=== PATIENT | female | born 1960 | race Caucasian/White ===

== ENCOUNTER → 2020-07-22 | Outpatient (CLI) | payer BC, OTHER ==
[2020-07-22 13:25] LABS: HEMOGLOBIN 14.1 gm/dl (12.3-15.3); RED BLOOD COUNT 4.83 M/UL (4.00-5.10); WHITE BLOOD COUNT 19.1 K/UL (4.5-11.0)
[2020-07-22 13:52] LABS: BUN/CREATININE RATIO 26 (0-10)
== END ==
LOC: LAB 12:01
DX: R41.9 Unspecified symptoms and signs involving cognitive functions and awareness (principal); T78.40XA Allergy, unspecified, initial encounter; E55.9 Vitamin D deficiency, unspecified; R53.83 Other fatigue
CPT/HCPCS: 36415; 80053; 80061; 82607; 83036; 84443; 85027

== ENCOUNTER → 2021-02-15 | Outpatient (CLI) | payer BC ==
[2021-02-15 12:53] LABS: HEMOGLOBIN 14.6 gm/dl (12.3-15.3); RED BLOOD COUNT 4.89 M/UL (4.00-5.10); WHITE BLOOD COUNT 8.2 K/UL (4.5-11.0)
[2021-02-15 13:18] LABS: BUN/CREATININE RATIO 15 (0-10)
[2021-02-16 11:13] LABS: RHEUMATOID ARTHRITIS FACTOR <10.0 IU/mL (0.0-13.9)
== END ==
LOC: LAB 11:43
PROVIDERS: Nurse Practitioner Family
DX: M25.50 Pain in unspecified joint (principal); M79.10 Myalgia, unspecified site
CPT/HCPCS: 80053; 82550; 83520; 85025; 85652; 86140; 86200; 86431

== ENCOUNTER 2021-06-16 09:52 | Emergency (ER) | payer SELFPAY ==
[2021-06-16 10:47] LABS: HEMOGLOBIN 14.7 gm/dl (12.3-15.3); RED BLOOD COUNT 5.07 M/UL (4.00-5.10); WHITE BLOOD COUNT 8.2 K/UL (4.5-11.0)
[2021-06-16 11:12] LABS: BUN/CREATININE RATIO 17 (0-10)
== END 2021-06-16 16:22 | disposition home or self-care (01) ==
LOC: ER1 09:52
PROVIDERS: Family Medicine
DX: M54.6 Pain in thoracic spine (principal); I10 Essential (primary) hypertension; R07.9 Chest pain, unspecified; F41.9 Anxiety disorder, unspecified; F17.200 Nicotine dependence, unspecified, uncomplicated; R29.700 NIHSS score 0
CPT/HCPCS: 71045; 80048; 81001; 82550; 82553; 83874; 84484; 85025; 93005; 99284

== ENCOUNTER 2021-07-14 11:51 | Emergency (ER) | payer BC ==
[2021-07-14 12:50] LABS: HEMOGLOBIN 14.2 gm/dl (12.3-15.3); RED BLOOD COUNT 4.83 M/UL (4.00-5.10); WHITE BLOOD COUNT 8.7 K/UL (4.5-11.0)
[2021-07-14 13:32] LABS: BUN/CREATININE RATIO 33 (0-10)
== END 2021-07-14 17:25 | disposition home or self-care (01) ==
LOC: ER1 11:51
PROVIDERS: Emergency Medicine
DX: R07.2 Precordial pain (principal); I10 Essential (primary) hypertension; F17.210 Nicotine dependence, cigarettes, uncomplicated
CPT/HCPCS: 71045; 80053; 82550; 82553; 83880; 84484; 85025; 93005; 99285